=== PATIENT | female | born 1970 | race African-American/Black ===

== ENCOUNTER 2021-10-19 09:18 | Day surgery (SDC) | payer OTHER ==
[2021-10-14 12:20] VITALS: BMI 27.4
[2021-10-19 12:51] VITALS: TEMP 97.9
[2021-10-19 12:56] VITALS: BP 124/84; PULSE 82
== END 2021-10-19 11:50 | disposition home or self-care (01) ==
LOC: FASU-ENDO 09:18
PROVIDERS: ATTEND Internal Medicine Gastroenterology
PROC: 0DJD8ZZ Inspection of Lower Intestinal Tract, Via Natural or Artificial Opening Endoscopic (ICD-10-PCS; principal; 2021-10-19 10:46)
DX: Z12.11 Encounter for screening for malignant neoplasm of colon (principal)
CPT/HCPCS: 81025